=== PATIENT | female | born 1990 | race Two or more races ===

== ENCOUNTER 2022-06-09 21:42 | Emergency (ER) | payer MEDICAID ==
[~2022-06-09] VITALS: Ht 157.5 cm; Wt 57.0 kg
[2022-06-09 23:57] LABS: Basophils # (auto) 0.1 10 ^3/uL (0-0.2); Basophils % (auto) 0.5 % (0.0-2.0); Eosinophils # (auto) 0.3 10 ^3/uL (0-0.8); Eosinophils % (auto) 2.2 % (0.0-7.0); Hematocrit 41.5 % (36.0-46.0); Hemoglobin 14.2 g/dL (12.2-16.2); Lymphocytes # (auto) 1.6 10 ^3/uL (0.4-5.4); Lymphocytes % (auto) 11.8 % (10.0-50.0); Mean Corpuscular Hemoglobin 31.8 pg (28.0-32.0); Mean Corpuscular Hgb Conc. 34.1 g/dL (32.0-36.0); Mean Corpuscular Volume 93.2 fL (80.0-100.0); Monocytes # (auto) 0.6 10 ^3/uL (0-1.3); Monocytes % (auto) 4.6 % (0.0-12.0); Neutrophils % (auto) 80.9 % (37.0-80.0); Red Blood Cells 4.45 10^6/uL (4.0-5.20); Red Cell Distribution Width 13.3 % (11.8-14.3); White Blood Cell 13.6 10^3/uL (4.4-10.8)
[2022-06-10] MEDS ORDERED: SODIUM CHLORIDE 0.9% 1,000 ML IV ONE
[2022-06-10] MEDS ORDERED: fentaNYL CITRATE 100 MCG/2 ML VL IV ONE
[2022-06-10 00:16] LABS: Albumin 3.8 g/dL (3.4-5.0); BUN/Creatinine Ratio 18.8; Calcium 8.8 mg/dL (8.5-10.1); Potassium 3.8 mmol/L (3.5-5.1)
[2022-06-10 00:19] LABS: Bilirubin, Total 0.2 mg/dL (0.2-1.0); Total Protein 7.6 g/dL (6.4-8.2)
[2022-06-10] MEDS ORDERED: PROPOFOL 10 MG/ML 20 ML IV ONE (01:15)
[2022-06-10] MEDS ORDERED: PROPOFOL 100 ML IV ONE (01:19)
[2022-06-10 01:50] VITALS: BP 130/85
== END 2022-06-10 02:20 | disposition left against medical advice (07) ==
LOC: ER 21:42
DX: S43.004A Unspecified dislocation of right shoulder joint, initial encounter (principal); Z53.29 Procedure and treatment not carried out because of patient's decision for other reasons; X50.1XXA Overexertion from prolonged static or awkward postures, initial encounter; Y93.89 Activity, other specified; Y92.89 Other specified places as the place of occurrence of the external cause; Y99.8 Other external cause status
CPT/HCPCS: 23650; 36415; 73030; 80053; 80320; 85025; 96361; 96374; 99152; 99285; J7030; J2704

== ENCOUNTER 2022-06-26 15:24 | Emergency (ER) | payer MEDICAID ==
[~2022-06-26] VITALS: Ht 157.5 cm; Wt 125.0 kg
[2022-06-26] MEDS ORDERED: KETOROLAC TROMETH 30 MG/ML 1ML VIAL IV ONE (17:15)
[2022-06-26] MEDS ORDERED: KETAMINE 50mg/ML 10ml Vial (500mg/10ml) IV ONE (17:15)
[2022-06-26] MEDS ORDERED: ONDANSETRON HCL 4 MG/2 ML VIAL IV ONE (17:15)
[2022-06-26] MEDS ORDERED: MORPHINE SULFATE 4 MG/ML SYR/VIAL IV ONE (17:15)
[2022-06-26] MEDS ORDERED: LORazepam 2MG/ML-1ML VIAL IV ONE (18:45)
[2022-06-26 23:00] VITALS: BP 126/77
== END 2022-06-26 23:12 | disposition home or self-care (01) ==
LOC: ER 15:25
DX: S43.004A Unspecified dislocation of right shoulder joint, initial encounter (principal); X58.XXXA Exposure to other specified factors, initial encounter; Y93.89 Activity, other specified; Y92.89 Other specified places as the place of occurrence of the external cause; Y99.8 Other external cause status
CPT/HCPCS: 23650; 73020; 96374; 96375; 99152; 99285; J1885; J2060; J2270; J2405

== ENCOUNTER 2022-09-17 15:18 | Emergency (ER) | payer MEDICAID ==
[~2022-09-17] VITALS: Ht 172.7 cm; Wt 56.8 kg
[2022-09-17] MEDS ORDERED: ETOMIDATE (2MG/ML) 20ML VIAL IV ONE (15:45)
[2022-09-17] MEDS ORDERED: TRAM-297 PO (17:31)
[2022-09-17 18:10] VITALS: BP 130/85
== END 2022-09-17 18:45 | disposition home or self-care (01) ==
LOC: EDBD 15:18 → ER 15:20
DX: S43.014A Anterior dislocation of right humerus, initial encounter (principal); Z79.899 Other long term (current) drug therapy; X58.XXXA Exposure to other specified factors, initial encounter; Y93.89 Activity, other specified; Y92.89 Other specified places as the place of occurrence of the external cause; Y99.8 Other external cause status
CPT/HCPCS: 23650; 73020; 73030; 99152

== ENCOUNTER 2022-10-17 19:29 | Emergency (ER) | payer MEDICAID ==
[~2022-10-17] VITALS: Ht 167.6 cm; Wt 56.8 kg
[~2022-10-17 19:29] MED LIST: TRAM-297 PO
[2022-10-17] MEDS ORDERED: ETOMIDATE (2MG/ML) 20ML VIAL IV ONE (20:30)
[2022-10-17 22:38] VITALS: BP 143/95
== END 2022-10-17 22:58 | disposition home or self-care (01) ==
LOC: ER 19:30
DX: S43.014A Anterior dislocation of right humerus, initial encounter (principal); F12.10 Cannabis abuse, uncomplicated; X58.XXXA Exposure to other specified factors, initial encounter; Y93.89 Activity, other specified; Y92.89 Other specified places as the place of occurrence of the external cause; Y99.8 Other external cause status
CPT/HCPCS: 23650; 73020; 73030; 99285; J7030

== ENCOUNTER 2023-02-26 16:35 | Emergency (ER) | payer MEDICAID ==
[~2023-02-26] VITALS: Ht 170.2 cm; Wt 77.5 kg
[2023-02-26] MEDS ORDERED: MORPHINE SULFATE 4 MG/ML SYR/VIAL IV ONE (17:00)
[2023-02-26] MEDS ORDERED: ONDANSETRON HCL 4 MG/2 ML VIAL IV ONE (17:00)
[2023-02-26] MEDS ORDERED: MIDAZOLAM HCL 2MG/2ML 2ml VIAL (1mg/ml) IV ONE (17:45)
[2023-02-26] MEDS ORDERED: ONDANSETRON HCL 4 MG/2 ML VIAL IM ONE (17:45)
[2023-02-26] MEDS ORDERED: KETAMINE 50mg/ML 10ml Vial (500mg/10ml) IV ONE (17:45)
[2023-02-26] MEDS ORDERED: MORPHINE SULFATE INJ 2 MG/ml SYRG IM ONE (17:45)
[2023-02-26 21:00] VITALS: BP 155/89
== END 2023-02-26 21:38 | disposition home or self-care (01) ==
LOC: EDBD 16:35 → ER 16:35
DX: S43.004A Unspecified dislocation of right shoulder joint, initial encounter (principal); F12.10 Cannabis abuse, uncomplicated; X58.XXXA Exposure to other specified factors, initial encounter; Y93.9 Activity, unspecified; Y92.89 Other specified places as the place of occurrence of the external cause; Y99.8 Other external cause status
CPT/HCPCS: 23650; 73020; 73030; 96372; 99152; 99285; J2250; J2270; J2405

== ENCOUNTER 2023-06-08 22:01 | Emergency (ER) | payer MEDICAID ==
[~2023-06-08] VITALS: Ht 157.5 cm; Wt 63.5 kg
[2023-06-08 23:05] VITALS: BP 132/82; PULSE 98; RESP 18; TEMP 98.5; O2SAT 99
[2023-06-08 23:32] LABS: Basophils # (auto) 0 10 ^3/uL (0-0.2); Basophils % (auto) 0.7 % (0.0-2.0); Eosinophils # (auto) 0.3 10 ^3/uL (0-0.8); Eosinophils % (auto) 4.7 % (0.0-7.0); Hematocrit 37.9 % (36.0-46.0); Hemoglobin 12.5 g/dL (12.2-16.2); Lymphocytes # (auto) 2.2 10 ^3/uL (0.4-5.4); Lymphocytes % (auto) 30.6 % (10.0-50.0); Mean Corpuscular Hemoglobin 31.1 pg (28.0-32.0); Mean Corpuscular Hgb Conc. 33.1 g/dL (32.0-36.0); Monocytes # (auto) 0.4 10 ^3/uL (0-1.3); Monocytes % (auto) 6.2 % (0.0-12.0); Neutrophils # (auto) 4.1 10 ^3/uL (1.6-8.6); Neutrophils % (auto) 57.8 % (37.0-80.0); Red Blood Cells 4.03 10^6/uL (4.0-5.20); Red Cell Distribution Width 13.3 % (11.8-14.3); White Blood Cell 7.1 10^3/uL (4.4-10.8)
[2023-06-08 23:47] LABS: Alanine Aminotransferase 21 U/L (7-40); Albumin 4.6 g/dL (3.2-4.8); Alkaline Phosphatase 75 U/L (46-116); Anion Gap 6.6 (5-15); Aspartate Aminotransferase 15 U/L (13-40); BUN/Creatinine Ratio 12.2 (10.0-20.0); Bilirubin, Total 0.3 mg/dL (0.2-1.0); Blood Urea Nitrogen 9 mg/dL (9-23); Calcium 9.7 mg/dL (8.5-10.1); Carbon Dioxide 27.4 mmol/L (20-30); Chloride 105 mmol/L (98-107); Glucose 87 mg/dL (74-106); Potassium 3.5 mmol/L (3.5-5.1); Sodium 139 mmol/L (136-145); Total Protein 7.7 g/dL (5.7-8.2)
== END 2023-06-09 01:20 | disposition home or self-care (01) ==
LOC: ER 22:01
DX: R60.0 Localized edema (principal); R06.02 Shortness of breath
CPT/HCPCS: 36415; 73610; 73630; 80053; 83880; 85025; 93970

== ENCOUNTER 2023-11-20 04:24 | Emergency (ER) | payer MEDICAID ==
[~2023-11-20] VITALS: Ht 157.5 cm; Wt 55.0 kg
[2023-11-20 08:50] VITALS: PULSE 88; RESP 18; O2SAT 99
[2023-11-20] MEDS: KETAMINE 50mg/ML 1ml syringe IV ONE (09:28)
[2023-11-20 11:04] VITALS: BP 131/86; PULSE 83; RESP 16; O2SAT 98
== END 2023-11-20 11:55 | disposition home or self-care (01) ==
LOC: EDBD 04:24 → ER 04:24
DX: S43.004A Unspecified dislocation of right shoulder joint, initial encounter (principal); F17.210 Nicotine dependence, cigarettes, uncomplicated; F12.10 Cannabis abuse, uncomplicated; F15.10 Other stimulant abuse, uncomplicated; X50.1XXA Overexertion from prolonged static or awkward postures, initial encounter; Y93.89 Activity, other specified; Y92.89 Other specified places as the place of occurrence of the external cause; Y99.8 Other external cause status
CPT/HCPCS: 23650; 73020; 73030; 96374

== ENCOUNTER 2024-08-11 07:38 | Emergency (ER) | payer MEDICAID ==
[~2024-08-11] VITALS: Ht 157.5 cm; Wt 56.0 kg
[2024-08-11 07:41] VITALS: BP 140/89; PULSE 93; RESP 20; O2SAT 96
== END 2024-08-11 08:56 | disposition left against medical advice (07) ==
LOC: ER 07:38
DX: M25.511 Pain in right shoulder (principal); Z53.21 Procedure and treatment not carried out due to patient leaving prior to being seen by health care provider

== ENCOUNTER 2024-09-19 07:40 | Emergency (ER) | payer MEDICAID ==
[~2024-09-19] VITALS: Ht 157.5 cm; Wt 61.3 kg
[2024-09-19 08:22] VITALS: TEMP 97.4
--- NOTE | 2024-09-19 08:36 | DVH ---
CLINICAL INDICATION: RIGHT SHOULDER PAIN DENIES TRAUMA OR INJURY TECHNIQUE: XY R SHOULDER 2+ VIEW XRAY Comparison: XY R SHOULDER 1V XRAY on DOS: 03/11/24, XY R SHOULDER 2+ VIEW XRAY on DOS: 03/11/24, XY R S HOULDER 1V XRAY on DOS: 11/20/23 FINDINGS/IMPRESSION: : Anterior shoulder dislocation. No acute fracture.
--- NOTE | 2024-09-19 08:47 | ED.PDOC ---
Musculoskeletal HPI Comments 34-year-old female who comes in with chief complaint of right shoulder injury. The patient states sleeping and shoulder popped out in her sleep. 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 She denies any other complaints at this time. The patient states that the pain is a 10 out of 10. 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: Denies all GAS MAIN AND LINE FITTER Hx Family History Family History: No family hx of Cancer, No family hx of DM, No family hx of Heart bryan Social History Smoker: Cigarettes Alcohol: Occasionally Drugs: Marijuana, Methamphetamine Lives In: Home All Other Systems: Reviewed and Negative (Per HPI) Physical Exam General Appearance: No Apparent Distress, Normal HEENT: Normal ENT Inspection, Pharynx Normal, TMs Normal Neck: Full Range of Motion, Non-Tender, Normal, Normal Inspection Respiratory: Chest Non-Tender, Lungs Clear, No Accessory Muscle Use, No Respiratory Distress, Normal Breath Sounds Cardiovascular: No Edema, No JVD, No Murmur, No Gallop, Normal Peripheral Pulses, Regular Rate/Rhythm Breast Exam: Deferred Gastrointestinal: No Organomegaly, Non Tender, No Pulsatile Mass, Normal Bowel Sounds, Soft Genitalia: Deferred Pelvic: Deferred Rectal: Deferred Extremities: No calf tenderness, Normal capillary refill, Normal inspection, Normal range of motion, Non-tender, No pedal edema Musculoskeletal : Location: Right Extremity Location: Shoulder (AC appears prominent. Neurovascular exam intact. Radial pulse 2+) Apperance: Normal Neurologic: Alert, non destructive evaluation technician II-XII nml as Tested, No Motor Deficits, Normal Affect, Normal Mood, No Sensory Deficits Cerebellar Function: Normal Reflexes: Normal Skin: Dry, Normal Color, Warm Lymphatic: No Adenopathy Was a procedure done? Was a procedure done?: Yes Sedation Sedation?: Yes Informed consent obtained: Yes Sedation start time: 10:40 Sedation end time: 10:52 Sedation total time: 12 Minutes Reduction Indication: Dislocation Sedation: Consents obtained, Sedation as ordered (10mg of Versed and 60mg of Etomidate) Intra-articular anesthetic best: No Post-reduction x-ray show: Reduction, Good Alignment Informed consent obtained: Yes Risks/benefits/alt described: Yes Notes Right shoulder dislocation reduced and arm sling provided. Differential Diagnosis EXT Differential Diagnosis: Sprain, Dislocation X-Ray, Labs, Meds, VS Vital Signs Date Time Temp Pulse Resp B/P (MAP) Pulse Ox O2 Delivery O2 Flow Rate FiO2 09/19/24 11:25 83 17 131/91 (104) 99 09/19/24 11:10 90 22 133/97 (109) 99 09/19/24 11:01 78 16 134/76 (95) 99 09/19/24 10:54 89 15 138/84 (102) 98 09/19/24 10:50 92 20 116/87 (97) 100 09/19/24 10:42 84 24 100 Room Air* 0 21 09/19/24 10:38 84 18 124/89 (101) 100 09/19/24 08:22 97.4 80 18 126/90 (102) 98 97.4 09/19/24 08:20 80 18 98 Room Air 09/19/24 07:45 97.2 82 20 128/96 (107) 96 Current Medications Medications (Trade) Dose Ordered Sig/Sommer Route Start Time Stop Time Status Last Admin Midazolam HCl (Versed Injection) 5 mg ONCE ONCE IV 09/19/24 10:45 09/19/24 10:46 DC 09/19/24 10:50 Etomidate 10 mg ONCE ONCE IV 09/19/24 11:15 09/19/24 11:16 DC 09/19/24 10:52 Rt Shoulder XR: FINDINGS/IMPRESSION: : Anterior shoulder dislocation. No acute fracture. X-Ray, Labs, Meds, VS Comment IV Hep-Lock was established. The patient tolerated the procedure well Were able to relocate the shoulder without any difficulty. Procedure done under the direct supervision of Dr. Norton The postreduction x-ray shows proper placement The patient will be discharged in a right shoulder immobilizer The patient will return to the emergency department the condition worsens Images Reviewed?: Images reviewed and evaluated by me Time of 1ST Reevaluation: 08:43 Reevaluation 1ST: Improved Patient Education/Counseling: Diagnosis, Treatment Family Education/Counseling: Diagnosis, Treatment Departure 1 Departure Time of Disposition: 12:58 Impression: Primary Impression: Anterior dislocation of right shoulder Qualified Codes: S43.014A - Anterior dislocation of right humerus, initial encounter Disposition: HOME / SELF CARE / HOMELESS Condition: Stable Discharged With: Relative Critical Care Note Critical Care Time?: No Stability Stability form required: No Heart Score Heart Score: Heart Score Response (Comments) Value History N/A 0 EKG N/A 0 Age N/A 0 Risk Factors N/A 0 Troponin N/A 0 Total 0 I personally scribed for RAMIN LEWIS NP ([email or web address]) on 09/19/24 at 11:07. Electronically submitted by Sujey Sherman ([email or web address]). RAMIN LEWIS NP Sep 19, 2024 08:47
[2024-09-19 10:42] VITALS: PULSE 84; RESP 24; O2SAT 100
[2024-09-19] MEDS ORDERED: ETOMIDATE (2MG/ML) 20ML VIAL IV ONE (10:45)
[2024-09-19] MEDS: MIDAZOLAM HCL 5 MG/ML-1ML VIAL IV ONE (10:50)
[2024-09-19] MEDS: ETOMIDATE (2MG/ML) 20ML VIAL IV ONE ×2 (10:52→11:06)
[2024-09-19] MEDS: MIDAZOLAM HCL 5 MG/ML-1ML VIAL ONE (11:06)
[2024-09-19 11:25] VITALS: BP 131/91; PULSE 83; RESP 17; O2SAT 99
--- NOTE | 2024-09-19 11:37 | DVH ---
INDICATION: POST REDUCTION TECHNIQUE: Fluoroscopic images of the any were performed. Images are provided for intraoperative loca lization. COMPARISON: XY R SHOULDER 2+ VIEW XRAY on DOS: 09/19/24 FINDINGS: Interval successful reduction of the right humerus which now articulates with the glenoid. The acrom ioclavicular joint space is maintained. Impression: Successful reduction of the right glenohumeral joint.
== END 2024-09-19 12:59 | disposition home or self-care (01) ==
LOC: ER 07:40 → EDBD 07:40 → EDUNIT# 07:40 → ER 12:59
DX: S43.014A Anterior dislocation of right humerus, initial encounter (principal); F17.210 Nicotine dependence, cigarettes, uncomplicated; F12.10 Cannabis abuse, uncomplicated; F15.10 Other stimulant abuse, uncomplicated; W22.8XXA Striking against or struck by other objects, initial encounter; Y93.89 Activity, other specified; Y92.89 Other specified places as the place of occurrence of the external cause; Y99.8 Other external cause status
CPT/HCPCS: 23650; 73030; 99152; 99285; J2250

== ENCOUNTER 2025-01-09 19:50 | Emergency (ER) | payer MEDICAID ==
[~2025-01-09] VITALS: Ht 160 cm; Wt 56.7 kg
--- NOTE | 2025-01-09 21:24 | DVH ---
EXAM: XY R ELBOW 3 VIEW XRAY CLINICAL INDICATION: horse bite TECHNIQUE: XY R ELBOW 3 VIEW XRAY Comparison: XY R FOOT 3 VIEW XRAY on DOS: 06/08/23 FINDINGS/IMPRESSION: There is no evidence of acute fracture or dislocation. The visualized joint space is well maintained. The alignment is anatomical. Diffuse soft tissue swelling.
[2025-01-09 23:46] VITALS: BP 125/73; PULSE 110; RESP 20; TEMP 98.2; O2SAT 100
[2025-01-10] MEDS ORDERED: cefTRIAXone SOD 1,000 MG VL IM ONE (00:15)
[2025-01-10] MEDS: cefTRIAXone 1GM/50ML D5W 50 ML IV ONE (00:25)
[2025-01-10] MEDS ORDERED: AUG875T PO (01:12)
--- NOTE | 2025-01-10 01:12 | ED.PDOC ---
History of Present Illness(SKN HPI Comments PER EMS, PATIENT C/O RIGHT ELBOW PAIN S/P GETTING BIT BY HER HORSE 2 DAYS AGO. 2 PUNCTURE WOUNDS NOTED. DENIES NUMBNESS WEAKNESS OR ANY OTHER KNOWN INJURY Chief Complaint: Animal Bite Time Seen by MD: 20:16 Primary Care Provider: UNKNOWN NAME History of Present Illness: Nurses Notes, Medications, Allergies Allergies: Coded Allergies: NO KNOWN ALLERGIES (Unverified , 06/09/22) Home Meds Active Scripts Amoxicillin & Pot Clavulanate (AUGMENTIN TABLET) 875 Mg Tb, 875 MG PO BID for 7 Days, #14 TAB Prov:BRYAN KISER 01/10/25 Tramadol Hcl (Ultram) 50 Mg Tab, 1 TAB PO Q6HR, #30 TAB Prov:LADONNA DOBSON MD 09/17/22 Information Source: Patient Mode of Arrival: EMS Past Medical History PAST MEDICAL HISTORY: Denies 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: 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 all PLANE TABLEMAN Hx Family History Family History: No family hx of Cancer, No family hx of DM, No family hx of Heart brayn Social History Smoker: Cigarettes Alcohol: Occasionally Drugs: Marijuana, Methamphetamine Lives In: Home Constitutional: denies: chills, diaphoresis, fatigue, fever, malaise, sweats, weakness, others EENTM: denies: blurred vision, double vision, ear bleeding, ear discharge, ear drainage, ear pain, ear ringing, eye pain, eye redness, hearing loss, mouth pain, mouth swelling, nasal discharge, nose bleeding, nose congestion, nose pain, photophobia, tearing, throat pain, throat swelling, voice changes, others Respiratory: denies: cough, hemoptysis, orthopnea, SOB at rest, shortness of breath, SOB with excertion, stridor, wheezing, others Cardiovascular: denies: chest pain, dizzy spells, diaphoresis, Dyspnea on exertion, edema, irregular heart beat, left arm pain, lightheadedness, palpitations, PND, syncope, others Gastrointestinal: denies: abdomen distended, abdominal pain, blood streaked bowels, constipated, diarrhea, dysphagia, difficulty swallowing, hematemesis, melena, nausea, poor appetite, poor fluid intake, rectal bleeding, rectal pain, vomiting, others Genitourinary: denies: abnormal vagina bleeding, burning, dyspareunia, dysuria, flank pain, frequency, hematuria, incontinence, pain, , vagina discharge, urgency, others Neurological: denies: dizziness, fainting, headache, left sided numbness, left sided weakness, numbness, paresthesia, pre-existing deficit, right sided nu mbness, right sided weakness, seizure, speech problems, tingling, tremors, weakness, others Musculoskeletal: reports: others (RIGHT ELBOW PAIN AND SWELLING); denies: back pain, gout, joint pain, joint swelling, muscle pain, muscle stiffness, neck pain Integumetry: reports: laceration (RIGHT ELBOW); denies: bruises, change in color, change in hair/nails, dryness, lesions, lumps, rash, wounds, others Allergic/Immunocompromised: denies: Difficulty Healing, Frequent Infections, Hives, Itching, others Hematologic/Lymphatic: denies: anemia, blood clots, easy bleeding, easy bruising, swollen glands, others Endocrine: denies: excessive hunger, excessive sweating, excessive thirst, excessive urination, flushing, intolerance to cold, intolerance to heat, unexplained weight gain, unexplained weight loss, others Psychiatric: denies: anxiety, bipolar disorder, depression, hopeless, panic disorder, schizophrenia, sleepless, suicidal, others Physical Exam General Appearance: No Apparent Distress, Normal HEENT: Pharynx Normal Neck: Full Range of Motion, Non-Tender Respiratory: Lungs Clear, No Respiratory Distress, Normal Breath Sounds Cardiovascular: No Edema, No JVD, No Murmur, No Gallop, Normal Peripheral Pulses, Regular Rate/Rhythm Breast Exam: Deferred Gastrointestinal: No Organomegaly, Non Tender, No Pulsatile Mass, Normal Bowel Sounds, Soft Genitalia: Deferred Pelvic: Deferred Rectal: Deferred Extremities: No calf tenderness, Normal capillary refill, Normal inspection, Normal range of motion, Non-tender, No pedal edema Musculoskeletal : Location: Right Extremity Location: Elbow (SWELLING TO RIGHT ELBOW NO NOTED CREPITUS STRENGTH SENSORY MOTION INTACT POSITIVE RADIAL PULSE) Apperance: Normal Neurologic: Alert, cheese processor II-XII nml as Tested, No Motor Deficits, Normal Affect, Normal Mood, No Sensory Deficits Cerebellar Function: Normal Reflexes: Normal Skin: Dry, Lacerations (1 CM PARTIAL-THICKNESS LACERATION TO RIGHT ELBOW NO NOTED BLEEDING OR DRAINAGE. ), Normal Color, Warm Lymphatic: No Adenopathy Was a procedure done? Was a procedure done?: No Differential Diagnosis (INTG) Differential Diagnosis: Cellulitis, Contusion, Fracture, Hematoma, Puncture Wound X-Ray, Labs, Meds, VS Vital Signs Date Time Temp Pulse Resp B/P (MAP) Pulse Ox O2 Delivery O2 Flow Rate FiO2 01/09/25 23:46 98.2 110 20 125/73 (90) 100 98.2 01/09/25 19:55 98.2 110 20 125/73 (90) 100 98.2 Current Medications Medications (Trade) Dose Ordered Sig/Sommer Route Start Time Stop Time Status Last Admin Ceftriaxone Sodium 50 ml @ 100 mls/hr ONCE ONCE IV 01/10/25 00:30 01/10/25 00:59 DC 01/10/25 00:25 X-Ray, Labs, Meds, VS Comment LACERATION GREATER THAN 2-DAY-OLD ADVISED PATIENT THAT SUTURING IS NOT RECOMMENDED DUE TO INFECTION WE WILL START PATIENT ON TRIAL OF ANTIBIOTICS IN THE MEANTIME. WOUND CLEANSED AND WRAPPED ADVISED HER TO FOLLOW UP WITH HER PRIMARY CARE DOCTOR IN 2 DAYS FOR WOUND RE-EVALUATION OR BACK AT THE URGENT CARE OR ER. X-RAY RIGHT ELBOW SHOWS NO ACUTE FRACTURES, OSSEOUS LESIONS, DISLOCATION. IV ROCEPHIN 1 G GIVEN. ER RETURN PRECAUTIONS GIVEN PATIENT INDICATES UNDERSTANDING AGREES WITH DISCHARGE PLAN OF CARE. Time of 1ST Reevaluation: 01:10 Reevaluation 1ST: Improved Patient Education/Counseling: Diagnosis, Treatment, Prognosis, Need For Follow Up Family Education/Counseling: No Family Present Departure 1 Departure Time of Disposition: 01:11 Impression: Primary Impression: Contusion of elbow, left Qualified Codes: S50.02XA - Contusion of left elbow, initial encounter Additional Impression: Laceration Disposition: 01 HOME / SELF CARE / HOMELESS Condition: Stable e-Prescriptions Amoxicillin & Pot Clavulanate (AUGMENTIN TABLET) 875 Mg Tb 875 MG PO BID for 7 Days, #14 TAB Prov: BRYAN KISER 01/10/25 Discharged With: Self Critical Care Note Critical Care Time?: No Stability Stability form required: BRYAN Lia Jan 10, 2025 01:12
== END 2025-01-10 01:28 | disposition home or self-care (01) ==
LOC: ER 19:50 → EDBD 19:50 → ER 01-10 01:28
DX: S51.011A Laceration without foreign body of right elbow, initial encounter (principal); S50.02XA Contusion of left elbow, initial encounter; F17.210 Nicotine dependence, cigarettes, uncomplicated; F12.90 Cannabis use, unspecified, uncomplicated; F15.90 Other stimulant use, unspecified, uncomplicated; Z79.899 Other long term (current) drug therapy; Z98.890 Other specified postprocedural states; W55.11XA Bitten by horse, initial encounter; Y93.89 Activity, other specified; Y92.89 Other specified places as the place of occurrence of the external cause; Y99.8 Other external cause status
CPT/HCPCS: 73080; 96365; 99284; J0696

== ENCOUNTER 2025-06-01 07:26 | Emergency (ER) | payer MEDICAID ==
[~2025-06-01] VITALS: Ht 157.5 cm; Wt 59.0 kg
--- NOTE | 2025-06-01 07:45 | ED.PDOC ---
Musculoskeletal HPI Comments This is a 35 year old female with chief complaint of severe right shoulder pain. Patient reports waking up this morning with her right shoulder dislocated. States this happens frequently, >20x, has not come around to seeing a surgeon. Has Ehler Danlos Syndrome. Denies falling injury. Chief Complaint: Upper Extremity Time Seen by MD: 07:40 Primary Care Provider: UNKNOWN NAME Reviewed Notes: Nurses Notes, Nurse First Aid Notes, Medications, Allergies Allergies: Coded Allergies: NO KNOWN ALLERGIES (Unverified , 06/09/22) Home Meds Active Scripts Tramadol Hcl (Ultram) 50 Mg Tab, 1 TAB PO Q6HR, #30 TAB Prov:LADONNA DOBSON MD 09/17/22 Information Source: Patient, Emergency Med Personnel Mode of Arrival: EMS Location: Right Extremity Location: Shoulder Timing: Hours Prehospital treatment: None Severity: Moderate Able to Move Extremity: No Bear Weight: Fully Pain: Moderate Mechanism: Spontaneous Circumstances: Spontaneous Onset of Symptoms: Spontaneous Symptoms: Pain DVT Risk Factors: NONE Last Tetanus: Unknown History of: Shoulder Dislocation Associated signs and symptoms: Shoulder pain Past Medical History Past Medical History (Other): Ehlor Danlos Syndrome 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 PACKAGING LINE OPERATOR Hx Family History Family History: No family hx of Cancer, No family hx of DM, No family hx of Heart bryan Family History (Other): Thyroid disease Social History Smoker: Cigarettes Alcohol: Occasionally Drugs: Marijuana, Methamphetamine Lives In: Home Constitutional: denies: chills, diaphoresis, fatigue, fever, malaise, sweats, weakness, others EENTM: denies: blurred vision, double vision, ear bleeding, ear discharge, ear drainage, ear pain, ear ringing, eye pain, eye redness, hearing loss, mouth pain, mouth swelling, nasal discharge, nose bleeding, nose congestion, nose pain, photophobia, tearing, throat pain, throat swelling, voice changes, others Respiratory: denies: cough, hemoptysis, orthopnea, SOB at rest, shortness of breath, SOB with excertion, stridor, wheezing, others Cardiovascular: denies: chest pain, dizzy spells, diaphoresis, Dyspnea on exertion, edema, irregular heart beat, left arm pain, lightheadedness, palpitations, PND, syncope, others Gastrointestinal: denies: abdomen distended, abdominal pain, blood streaked bowels, constipated, diarrhea, dysphagia, difficulty swallowing, hematemesis, melena, nausea, poor appetite, poor fluid intake, rectal bleeding, rectal pain, vomiting, others Genitourinary: denies: abnormal vagina bleeding, burning, dyspareunia, dysuria, flank pain, frequency, hematuria, incontinence, pain, , vagina discharge, urgency, others Neurological: denies: dizziness, fainting, headache, left sided numbness, left sided weakness, numbness, paresthesia, pre-existing deficit, right sided numbness, right sided weakness, seizure, speech problems, tingling, tremors, weakness, others Musculoskeletal: reports: others (Rt shoulder dislocation); denies: back pain, gout, joint pain, joint swelling, muscle pain, muscle stiffness, neck pain Integumetry: denies: bruises, change in color, change in hair/nails, dryness, laceration, lesions, lumps, rash, wounds, others Allergic/Immunocompromised: denies: Difficulty Healing, Frequent Infections, Hives, Itching, others Hematologic/Lymphatic: denies: anemia, blood clots, easy bleeding, easy bruising, swollen glands, others Endocrine: denies: excessive hunger, excessive sweating, excessive thirst, excessive urination, flushing, intolerance to cold, intolerance to heat, unexplained weight gain, unexplained weight loss, others Psychiatric: denies: anxiety, bipolar disorder, depression, hopeless, panic disorder, schizophrenia, sleepless, suicidal, others All Other Systems: Reviewed and Negative Physical Exam General Appearance: No Apparent Distress, Normal HEENT: Normal ENT Inspection, Pharynx Normal, TMs Normal Neck: Full Range of Motion, Non-Tender, Normal, Normal Inspection Respiratory: Chest Non-Tender, Lungs Clear, No Accessory Muscle Use, No Respiratory Distress, Normal Breath Sounds Cardiovascular: No Edema, No JVD, No Murmur, No Gallop, Normal Peripheral Pulses, Regular Rate/Rhythm Breast Exam: Deferred Gastrointestinal: No Organomegaly, Non Tender, No Pulsatile Mass, Normal Bowel Sounds, Soft Genitalia: Deferred Pelvic: Deferred Rectal: Deferred Extremities: No calf tenderness, Normal capillary refill, Normal inspection, Normal range of motion, Non-tender, No pedal edema Musculoskeletal : Location: Right Extremity Location: Shoulder Apperance: Deformity (Dislocated), Tenderness: Moderate Neurologic: Alert, waste minimization technician II-XII nml as Tested, No Motor Deficits, Normal Affect, Normal Mood, No Sensory Deficits Cerebellar Function: Normal Reflexes: Normal Skin: Dry, Normal Color, Warm Lymphatic: No Adenopathy Was a procedure done? Was a procedure done?: Yes Sedation Sedation?: Yes Informed consent obtained: Yes Sedation start time: 11:20 Sedation end time: 11:25 Sedation total time: 5 Minutes Reduction Indication: Dislocation Sedation: Consents obtained, Sedation as ordered (Ketamine) Post-reduction x-ray show: Reduction, Good Alignment Informed consent obtained: Yes Risks/benefits/alt described: Yes Differential Diagnosis EXT Differential Diagnosis: Dislocation X-Ray, Labs, Meds, VS Vital Signs Date Time Temp Pulse Resp B/P (MAP) Pulse Ox O2 Delivery O2 Flow Rate FiO2 06/01/25 12:15 81 15 145/95 (112) 97 06/01/25 11:15 89 18 82 2.0 28 110 18 97 90 100 06/01/25 10:00 72 12 155/105 (122) 98 06/01/25 09:34 77 13 157/96 06/01/25 08:12 71 16 96 Room Air* 0 21 06/01/25 08:06 79 12 145/106 06/01/25 08:01 79 06/01/25 08:00 97.9 78 14 146/106 (119) 96 97.9 06/01/25 07:44 74 10 149/106 (120) 99 06/01/25 07:33 97.4 84 20 141/94 98 97.4 Current Medications Medications (Trade) Dose Ordered Sig/Sommer Route Start Time Stop Time Status Last Admin Morphine Sulfate 4 mg ONCE ONCE IV 06/01/25 08:00 06/01/25 08:01 DC 06/01/25 08:06 Ondansetron HCl (Zofran) 4 mg ONCE ONCE IV 06/01/25 08:00 06/01/25 08:01 DC 06/01/25 08:[address] [address] Ph: [phone] DIAGNOSTIC IMAGING Diagnostic Imaging Report : [id number] Signed PATIENT: LUCIA JOE ACCT: [id number] UNIT: [id number] : 1990 LOC: ER ROOM / BED: / AGE / SEX: 35 / F ADM STATUS: REG ER SERVICE [id number] ORDERING PHYSICIAN: MARQUIS SWANSON MD PROCEDURE(s): RSHD2 - R SHOULDER 2+ VIEW XRAY REASON: shoulder dislocation ORDER NUMBER(s): [id number], ACCESSION NUMBER(s): [id number] CLINICAL INDICATION: shoulder dislocation TECHNIQUE: XY R SHOULDER 2+ VIEW XRAY Comparison: XY R SHOULDER 2+ VIEW XRAY on DOS: 09/19/24, XY R SHOULDER 2+ VIEW XRAY on DOS: 09/19/24, XY R SHOULDER 1V XRAY on DOS: 03/11/24, XY R SHOULDER 2+ VIEW XRAY on DOS: 03/11/24, XY R SHOULDER 1V XRAY on DOS: 11/20/23 FINDINGS/IMPRESSION: : Anterior shoulder dislocation. ATED BY: RYAN TERRY MD DICTATED DATE/TIME: 06/01/25903 SIGNED BY: RYAN TERRY MD SIGNED DATE/TIME: 06/01/25903 CC: X-Ray, Labs, Meds, VS Comment This 35-year-old female presents secondary to recurrent right shoulder dislocation. She has a history of Omar-Danlos syndrome. The patient woke up this morning and his shoulder popped out. Here, we managed to reduce it under conscious sedation with ketamine. The patient will continue to be monitored for several hours. Upon time of discharge, the patient was GCS 15. She will wake, alert and oriented. She is stable with a difficulty. The patient was asked to follow up with the orthopedic surgeon as she will need surgical or. As she has had, per patient, greater than 20 dislocation of the shoulder. The patient continues to be neurovascularly intact postprocedure. Time of 1ST Reevaluation: 08:40 Reevaluation 1ST: Unchanged Patient Education/Counseling: Diagnosis, Treatment Family Education/Counseling: No Family Present Departure 1 Departure Time of Disposition: 12:29 Impression: Primary Impression: Anterior shoulder dislocation Disposition: 01 HOME / SELF CARE / HOMELESS Condition: Good Discharged With: Self Critical Care Note Critical Care Time?: No Stability Stability form required: No Heart Score Heart Score: Heart Score Response (Comments) Value History N/A 0 EKG N/A 0 Age N/A 0 Risk Factors N/A 0 Troponin N/A 0 Total 0 I personally scribed for MARQUIS SWANSON MD ([email or web address] on 06/01/25 at 07:45. Electronically submitted by Harpreet Mg ([email or web address]). I personally scribed for MARQUIS SWANSON MD ([email or web address]) on 06/01/25 at 09:29. Electronically submitted by Harpreet Mg ([email or web address]). I personally scribed for MARQUIS SWANSON MD ([email or web address]) on 06/01/25 at 11:27. Electronically submitted by Harpreet Mg ([email or web address]). MARQUIS SWANSON MD Jun 01, 2025 07:45
[2025-06-01 08:00] VITALS: TEMP 97.9
[2025-06-01] MEDS: ONDANSETRON HCL 4 MG/2 ML VIAL IV ONE (08:06)
[2025-06-01] MEDS: MORPHINE SULFATE 4 MG/ML SYR/VIAL IV ONE (08:06)
[2025-06-01 08:12] VITALS: PULSE 71; RESP 16; O2SAT 96
--- NOTE | 2025-06-01 09:07 | DVH ---
CLINICAL INDICATION: shoulder dislocation TECHNIQUE: XY R SHOULDER 2+ VIEW XRAY Comparison: XY R SHOULDER 2+ VIEW XRAY on DOS: 09/19/24, XY R SHOULDER 2+ VIEW XRAY on DOS: 09/19/24, X Y R SHOULDER 1V XRAY on DOS: 03/11/24, XY R SHOULDER 2+ VIEW XRAY on DOS: 03/11/24, XY R SHOULDER 1V XR AY on DOS: 11/20/23 FINDINGS/IMPRESSION: : Anterior shoulder dislocation.
[2025-06-01] MEDS: KETAMINE 50mg/ML 10ml Vial (500mg/10ml) IV ONE (11:14)
[2025-06-01] MEDS: LORazepam 2MG/ML-1ML VIAL ONE (11:34)
[2025-06-01] MEDS: LORazepam 2MG/ML-1ML VIAL IV ONE (11:34)
--- NOTE | 2025-06-01 12:09 | DVH ---
XY R SHOULDER 1V XRAY INDICATION: POST REDUCTION TECHNICAL DATA: 1 views were obtained of the right shoulder. COMPARISON: XY R SHOULDER 2+ VIEW XRAY on DOS: 06/01/25, XY R SHOULDER 2+ VIEW XRAY on DOS: 09/19/24, X Y R SHOULDER 2+ VIEW XRAY on DOS: 09/19/24 FINDINGS: There is no fracture or focal bone abnormality. The glenohumeral joint is normally maintained. The ac romioclavicular joint appears normal. The humeral head is not high riding. Adjacent soft tissues are within normal limits. IMPRESSION: Interval reduction of the previously noted right shoulder dislocation.
[2025-06-01 15:00] VITALS: BP 116/83; PULSE 93; RESP 16; O2SAT 96
== END 2025-06-01 15:49 | disposition home or self-care (01) ==
LOC: ER 07:26 → EDBD 07:26 → ER 15:49
DX: S43.084A Other dislocation of right shoulder joint, initial encounter (principal); F17.210 Nicotine dependence, cigarettes, uncomplicated; F10.90 Alcohol use, unspecified, uncomplicated; F12.90 Cannabis use, unspecified, uncomplicated; F19.90 Other psychoactive substance use, unspecified, uncomplicated; Z98.890 Other specified postprocedural states; Z79.899 Other long term (current) drug therapy; X58.XXXA Exposure to other specified factors, initial encounter; Y93.89 Activity, other specified; Y92.89 Other specified places as the place of occurrence of the external cause; Y99.8 Other external cause status; Y90.9 Presence of alcohol in blood, level not specified
CPT/HCPCS: 23650; 73020; 73030; 96374; 96375; 99285; J2270; J2405

== ENCOUNTER 2025-06-03 03:56 | Emergency (ER) | payer MEDICAID ==
[~2025-06-03] VITALS: Ht 157.5 cm; Wt 59.0 kg
[2025-06-03] MEDS ORDERED: MORPHINE SULFATE INJ 2 MG/ml SYRG IM ONE (04:15)
--- NOTE | 2025-06-03 04:48 | ED.PDOC ---
Musculoskeletal HPI Comments 35 y/o F, with a history of Omar Danlos syndrome, is BIBA for right shoulder pain. Patient endorses on history of frequent right shoulder dislocations and suspects on dislocating said shoulder, again, after waking up to pain, this morning, after falling asleep. Last dislocation of shoulder with accompanying hospital visit and reduction was 2x days ago. Denies any additional acute symptoms at this time. 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 Family History Family History: No family hx of Cancer, No family hx of DM, No family hx of Heart bryan Family History (Other): Thyroid disease Social History Smoker: Cigarettes Alcohol: Occasionally Drugs: Marijuana, Methamphetamine Lives In: Home All Other Systems: Reviewed and Negative (Comprehensive review of systems are negative unless otherwise stated in HPI) Physical Exam General Appearance: No Apparent Distress, Normal HEENT: Normal ENT Inspection, Pharynx Normal, TMs Normal Neck: Full Range of Motion, Non-Tender, Normal, Normal Inspection Respiratory: Chest Non-Tender, Lungs Clear, No Accessory Muscle Use, No Respiratory Distress, Normal Breath Sounds Cardiovascular: No Edema, No JVD, No Murmur, No Gallop, Normal Peripheral Pulses, Regular Rate/Rhythm Breast Exam: Deferred Gastrointestinal: No Organomegaly, Non Tender, No Pulsatile Mass, Normal Bowel Sounds, Soft Genitalia: Deferred Pelvic: Deferred Rectal: Deferred Extremities: Decreased range of motion (right shoulder ), No calf tenderness, Normal capillary refill, No pedal edema, Tender (right shoulder tenderness ) Musculoskeletal : Apperance: Normal 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 Was a procedure done?: Yes Sedation Sedation?: Yes Informed consent obtained: Yes Sedation start time: 04:20 Sedation end time: 04:35 Sedation total time: 15 minutes Reduction Indication: Dislocation Sedation: Consents obtained, Sedation as ordered (morphine 2img IM) Intra-articular anesthetic best: Yes Nerve Block: Other (left shoulder ) Post-reduction x-ray show: Reduction, Good Alignment Informed consent obtained: Yes Risks/benefits/alt described: Yes Notes patient tolerated procedure Differential Diagnosis EXT Differential Diagnosis: Fracture, Sprain, Dislocation, Strain X-Ray, Labs, Meds, VS Vital Signs Date Time Temp Pulse Resp B/P (MAP) Pulse Ox O2 Delivery O2 Flow Rate FiO2 06/03/25 04:05 97.9 100 16 134/92 96 97.9 X-Ray, Labs, Meds, VS Comment FINDINGS/IMPRESSION: : There is no evidence of acute fracture or dislocation. Soft tissues are unremarkable. Degenerative glenohumeral joint space narrowing. RIGHT SHOULDER POSTREDUCTION X-RAY REVIEWED SHOULDER BACK IN PLACE NO NOTED DISLOCATION OR FRACTURES. PLACED IN SLING. PATIENT WAS GIVEN MORPHINE 2 MG IM REPORTS IMPROVEMENT IN PAIN REQUESTING DISCHARGE AT THIS TIME. ADVISED TO FOLLOW UP WITH ORTHO CONSIDER SURGICAL INTERVENTION PATIENT HAS HAD MULTIPLE DISLOCATIONS OVER THE PAST SEVERAL MONTHS. ADVISED ON RICE. ER RETURN PRECAUTIONS GIVEN PATIENT INDICATES UNDERSTANDING AND AGREES WITH DISCHARGE PLAN OF CARE Time of 1ST Reevaluation: 04:40 Reevaluation 1ST: Improved Time of 2ND Reevaluation: 04:57 Reevaluation 2ND: Improved Patient Education/Counseling: Diagnosis, Treatment, Need For Follow Up Family Education/Counseling: No Family Present Departure 1 Departure Time of Disposition: 05:13 Impression: Primary Impression: Dislocation of right shoulder joint Qualified Codes: S43.004A - Unspecified dislocation of right shoulder joint, initial encounter Disposition: HOME / SELF CARE / HOMELESS Condition: Stable Discharged With: Friend Critical Care Note Critical Care Time?: No Stability Stability form required: No Heart Score Heart Score: Heart Score Response (Comments) Value History N/A 0 EKG N/A 0 Age N/A 0 Risk Factors N/A 0 Troponin N/A 0 Total 0 I personally scribed for ER ([email or web address]) on 06/03/25 at 04:48. Electronically submitted by Doni Aguilar ([email or web address]). ER Jun 03, 2025 04:48 BRYAN KISER [facility] Jun 03, 2025 04:58
--- NOTE | 2025-06-03 05:03 | DVH ---
CLINICAL INDICATION: POST REDUCTION TECHNIQUE: XY R SHOULDER 2+ VIEW XRAY Comparison: XY R SHOULDER 1V XRAY on DOS: 06/01/25, XY R SHOULDER 2+ VIEW XRAY on DOS: 06/01/25, XY R S HOULDER 2+ VIEW XRAY on DOS: 09/19/24, XY R SHOULDER 2+ VIEW XRAY on DOS: 09/19/24, XY R SHOULDER 1V XR AY on DOS: 03/11/24 FINDINGS/IMPRESSION: : There is no evidence of acute fracture or dislocation. Soft tissues are unremarkable. Degenerative glenohumeral joint space narrowing.
[2025-06-03 05:16] VITALS: BP 135/88; PULSE 92; RESP 16; TEMP 98.5; O2SAT 96
== END 2025-06-03 05:25 | disposition home or self-care (01) ==
LOC: ER 03:56 → EDUNIT# 03:56 → EDBD 03:56 → ER 05:25
DX: S43.004A Unspecified dislocation of right shoulder joint, initial encounter (principal); F17.210 Nicotine dependence, cigarettes, uncomplicated; F12.90 Cannabis use, unspecified, uncomplicated; F19.90 Other psychoactive substance use, unspecified, uncomplicated; Z98.890 Other specified postprocedural states; Z79.899 Other long term (current) drug therapy; X58.XXXA Exposure to other specified factors, initial encounter; Y93.89 Activity, other specified; Y92.89 Other specified places as the place of occurrence of the external cause; Y99.8 Other external cause status
CPT/HCPCS: 23650; 73030; 99152; 99285; J2270